=== PATIENT | male | born 1955 | race Caucasian/White ===

== ENCOUNTER 2018-02-03 15:57 | Inpatient (IN) | payer MEDICAID ==
[~2018-02-03] VITALS: Ht 182.9 cm; Wt 69.9 kg
[~2018-02-03 15:57] MED LIST: FLOMAX; SULF1TAB48 PO; TAMS0.4C31 PO; TERA2CAP4 PO
[2018-02-04] MEDS ORDERED: ONDANSETRON HCL 4MG/2ML INJ IV STA (00:49)
[2018-02-04] MEDS ORDERED: SODIUM CHLORIDE 0.9% 1,000 ML IV ONE ×2 (00:49→11:30)
[2018-02-04 01:20] LABS: CHLORIDE 94 mEq/L (98-107)
[2018-02-04 01:22] LABS: BASOPHILS % 0.2 % (0.0-2.0); EOSINOPHILS % 0.1 % (0.0-5.0); HEMATOCRIT. 56.1 % (42.0-52.0); HEMOGLOBIN. 19.1 g/dL (14.0-18.0); LYMPHOCYTES % 10.5 % (20.0-50.0); MEAN CORPUSCULAR HEMOGLOBIN 30.9 pg (28.0-32.0); MEAN CORPUSCULAR VOLUME 90.4 fL (80.0-94.0); MONOCYTES % 13.3 % (2.0-8.0); NEUTROPHILS % 75.9 % (40.0-76.0); RED CELL DISTRIBUTION WIDTH 13.3 % (11.6-14.6)
[2018-02-04 01:24] LABS: INR 1.1; PROTHROMBIN TIME 11.4 sec (9.1-11.1)
[2018-02-04 01:25] LABS: ETHANOL BLOOD < 10 mg/dL
[2018-02-04] MEDS ORDERED: ONDANSETRON HCL 4MG/2ML INJ IV ONE (01:30)
[2018-02-04 01:56] LABS: MEAN PLATELET VOLUME 8.3 fl (7.4-10.4); PLATELET 372 x1000/uL (130-400)
[2018-02-04 04:27] LABS: CLARITY URINE CLEAR (CLEAR); COLOR URINE YELLOW (YELLOW); KETONES URINE NEGATIVE (NEGATIVE); LEUKOCYTE ESTERASE URINE NEGATIVE (NEGATIVE); NITRITE URINE NEGATIVE (NEGATIVE); OCCULT BLOOD URINE NEGATIVE (NEGATIVE); PROTEIN URINE 2+ (NEGATIVE); SPECIFIC GRAVITY URINE 1.036 (1.005-1.030)
[2018-02-04 04:39] LABS: *AMPHETAMINES SCREEN URINE NEGATIVE (NEGATIVE); *BARBITURATES SCREEN URINE NEGATIVE (NEGATIVE); *COCAINE SCREEN URINE PRESUMTIVE POSITIVE (NEGATIVE)
[2018-02-04 04:40] LABS: *BENZODIAZEPINES SCREEN URINE NEGATIVE (NEGATIVE); CANNABINOID URINE SCREEN NEGATIVE (NEGATIVE); METHADONE URINE SCREEN NEGATIVE (NEGATIVE); OPIATES URINE SCREEN NEGATIVE (NEGATIVE); PHENCYCLIDINE URINE SCREEN NEGATIVE (NEGATIVE)
[2018-02-04] MEDS ORDERED: MORPHINE SULFATE 4 MG/ML CPJ (NOT FOR IM USE) IV ONE (05:15)
[2018-02-04] MEDS ORDERED: HYDRALAZINE 20MG/ML VIAL IV PRN (08:15)
[2018-02-04] MEDS ORDERED: MORPHINE SULFATE 4 MG/ML CPJ (NOT FOR IM USE) IV PRN (08:15)
[2018-02-04] MEDS ORDERED: ONDANSETRON HCL 4MG/2ML INJ IV PRN (08:15)
[2018-02-04] MEDS ORDERED: HYDRALAZINE 10 MG in SODIUM CHLORIDE 0.9% 49.5 ML IV PRN (11:30)
[2018-02-04 12:00] VITALS: BP 152/86
[2018-02-04 16:00] VITALS: BP_SYST 132; BP_SYST 151; BP_DIAS 86; BP_DIAS 95
[2018-02-04 17:00] VITALS: BP 138/81
[2018-02-04] MEDS: DEXT 5%/0.45% NACL 1000ML 1,000 ML IV SCH (18:30)
[2018-02-04 20:00] VITALS: BP 120/73
[2018-02-05] VITALS: BP 112/68
[2018-02-05 04:00] VITALS: BP 101/57
[2018-02-05] MEDS: DEXT 5%/0.45% NACL 1000ML 1,000 ML IV SCH ×2 (04:15→20:00)
[2018-02-05 06:11] LABS: BASOPHILS % 0.4 % (0.0-2.0); EOSINOPHILS % 1.4 % (0.0-5.0); HEMATOCRIT. 44.4 % (42.0-52.0); HEMOGLOBIN. 14.8 g/dL (14.0-18.0); LYMPHOCYTES % 18.1 % (20.0-50.0); MEAN CORPUSCULAR HEMOGLOBIN 30.3 pg (28.0-32.0); MEAN CORPUSCULAR VOLUME 91.3 fL (80.0-94.0); MONOCYTES % 14.2 % (2.0-8.0); NEUTROPHILS % 65.9 % (40.0-76.0); PLATELET 285 x1000/uL (130-400); RED BLOOD CELL COUNT 4.87 mill/uL (4.7-6.1); RED CELL DISTRIBUTION WIDTH 13.1 % (11.6-14.6)
[2018-02-05 06:26] LABS: CHLORIDE 105 mEq/L (98-107)
[2018-02-05 08:00] VITALS: BP 132/80
[2018-02-05 12:00] VITALS: BP 110/76
[2018-02-05 16:00] VITALS: BP 119/74
[2018-02-05 20:00] VITALS: BP 104/72
[2018-02-06] VITALS: BP 118/69
[2018-02-06] MEDS: DEXT 5%/0.45% NACL 1000ML 1,000 ML IV SCH (00:15)
[2018-02-06 04:00] VITALS: BP 108/67
[2018-02-06 08:00] VITALS: BP 96/52
[2018-02-06 10:31] LABS: BASOPHILS % 0.4 % (0.0-2.0); EOSINOPHILS % 0.9 % (0.0-5.0); HEMATOCRIT. 44.2 % (42.0-52.0); HEMOGLOBIN. 14.9 g/dL (14.0-18.0); MEAN CORPUSCULAR HEMOGLOBIN 30.7 pg (28.0-32.0); MEAN PLATELET VOLUME 8.1 fl (7.4-10.4); NEUTROPHILS % 64.7 % (40.0-76.0); PLATELET 260 x1000/uL (130-400); RED BLOOD CELL COUNT 4.86 mill/uL (4.7-6.1)
[2018-02-06 11:31] VITALS: BP 96/52
[2018-02-06 11:52] LABS: CHLORIDE 102 mEq/L (98-107)
== END 2018-02-06 11:50 | disposition home or self-care (01) | DRG 247 ==
LOC: ER 15:57 → 6EST 02-04 07:30 → ENRESERV 02-04 08:45
PROVIDERS: ADMIT Internal Medicine; ATTEND Internal Medicine
DX: K56.7 Ileus, unspecified (principal); N17.0 Acute kidney failure with tubular necrosis; E87.8 Other disorders of electrolyte and fluid balance, not elsewhere classified; I10 Essential (primary) hypertension; F14.90 Cocaine use, unspecified, uncomplicated; N40.0 Benign prostatic hyperplasia without lower urinary tract symptoms; Z79.899 Other long term (current) drug therapy
CPT/HCPCS: 36415; 71045; 74018; 74176; 80048; 80305; 83036; 99285; G0482; J2270; J2405; J7030

== ENCOUNTER 2018-05-04 09:45 | Emergency (ER) | payer MEDICAID ==
[~2018-05-04] VITALS: Ht 170.2 cm; Wt 73.0 kg
[~2018-05-04 09:45] MED LIST changes: -SULF1TAB48 PO
[2018-05-04 10:56] LABS: CLARITY URINE CLEAR (CLEAR); COLOR URINE YELLOW (YELLOW); KETONES URINE NEGATIVE (NEGATIVE); LEUKOCYTE ESTERASE URINE NEGATIVE (NEGATIVE); NITRITE URINE NEGATIVE (NEGATIVE); OCCULT BLOOD URINE TRACE (NEGATIVE); PH URINE 6.5 (4.5-8.0); PROTEIN URINE NEGATIVE (NEGATIVE); SPECIFIC GRAVITY URINE 1.008 (1.005-1.030); UROBILINOGEN URINE 0.2 E.U./dL (0.2-1.0)
[2018-05-04 11:34] LABS: BASOPHILS % 0.5 % (0.0-2.0); EOSINOPHILS % 1.1 % (0.0-5.0); HEMATOCRIT. 46.2 % (42.0-52.0); HEMOGLOBIN. 15.4 g/dL (14.0-18.0); LYMPHOCYTES % 15.4 % (20.0-50.0); MEAN CORPUSCULAR HEMOGLOBIN 30.4 pg (28.0-32.0); MEAN PLATELET VOLUME 8.3 fl (7.4-10.4); MONOCYTES % 8.7 % (2.0-8.0); NEUTROPHILS % 74.3 % (40.0-76.0); PLATELET 212 x1000/uL (130-400); RED BLOOD CELL COUNT 5.07 mill/uL (4.7-6.1); RED CELL DISTRIBUTION WIDTH 12.7 % (11.6-14.6)
[2018-05-04 11:38] LABS: CHLORIDE 106 mEq/L (98-107)
[2018-05-04 13:26] LABS: *BARBITURATES SCREEN URINE NEGATIVE (NEGATIVE)
[2018-05-04 13:27] LABS: *AMPHETAMINES SCREEN URINE NEGATIVE (NEGATIVE); *BENZODIAZEPINES SCREEN URINE NEGATIVE (NEGATIVE); *COCAINE SCREEN URINE PRESUMTIVE POSITIVE (NEGATIVE); METHADONE URINE SCREEN NEGATIVE (NEGATIVE); OPIATES URINE SCREEN NEGATIVE (NEGATIVE); PHENCYCLIDINE URINE SCREEN NEGATIVE (NEGATIVE)
[2018-05-04 13:28] LABS: CANNABINOID URINE SCREEN NEGATIVE (NEGATIVE)
[2018-05-04 14:01] VITALS: BP 138/88
== END 2018-05-04 14:36 | disposition home or self-care (01) ==
LOC: ER 09:57
DX: R33.9 Retention of urine, unspecified (principal)
CPT/HCPCS: 36415; 80305; 99283

== ENCOUNTER 2020-07-06 16:03 | Emergency (ER) | payer MEDICAID ==
[~2020-07-06] VITALS: Ht 177.8 cm; Wt 77.0 kg
[2020-07-06 16:05] VITALS: BP 188/92
[2020-07-06] MEDS ORDERED: SODIUM CHLORIDE 0.9% 1,000 ML IV ONE (16:30)
[2020-07-06] MEDS ORDERED: TAMS-11 MT (20:05)
[2020-07-06] MEDS ORDERED: CEPH500C2 MT (20:06)
== END 2020-07-06 17:12 | disposition left against medical advice (07) ==
LOC: ER 16:03
DX: R10.9 Unspecified abdominal pain (principal); R46.2 Strange and inexplicable behavior
CPT/HCPCS: 87086; 99283; J7030; Z7610

== ENCOUNTER 2020-07-06 18:20 | Emergency (ER) | payer MEDICAID ==
[~2020-07-06] VITALS: Ht 175.3 cm; Wt 73.0 kg
[2020-07-06] MEDS ORDERED: KETOROLAC 60MG/2ML VIAL IM ONE (18:45)
[2020-07-06] MEDS ORDERED: LORAZEPAM 1MG TABLET PO ONE (18:45)
[2020-07-06 19:06] LABS: BASOPHILS % 0.4 % (0.0-2.0); EOSINOPHILS % 0.5 % (0.0-5.0); HEMATOCRIT. 43.4 % (42.0-52.0); HEMOGLOBIN. 15.1 g/dL (14.0-18.0); LYMPHOCYTES % 8.5 % (20.0-50.0); MEAN CORPUSCULAR HEMOGLOBIN 30.8 pg (28.0-32.0); MEAN CORPUSCULAR VOLUME 88.4 fL (80.0-94.0); MEAN PLATELET VOLUME 7.7 fl (7.4-10.4); NEUTROPHILS % 86.6 % (40.0-76.0); PLATELET 270 x1000/uL (130-400); RED BLOOD CELL COUNT 4.91 mill/uL (4.7-6.1)
[2020-07-06 19:13] LABS: CHLORIDE 103 mEq/L (98-107)
[2020-07-06 19:17] LABS: ETHANOL BLOOD < 10 mg/dL
[2020-07-06] MEDS ORDERED: TAMS-11 MT (20:05)
[2020-07-06] MEDS ORDERED: CEPH500C2 MT (20:06)
[2020-07-06 21:09] VITALS: BP 136/76
[2020-07-06 22:02] LABS: CLARITY URINE CLOUDY (CLEAR); COLOR URINE RED (YELLOW); KETONES URINE NEGATIVE (NEGATIVE); LEUKOCYTE ESTERASE URINE 1+ (NEGATIVE); NITRITE URINE NEGATIVE (NEGATIVE); OCCULT BLOOD URINE 3+ (NEGATIVE); PH URINE >=9.0 (4.5-8.0); PROTEIN URINE 1+ (NEGATIVE); SPECIFIC GRAVITY URINE 1.011 (1.005-1.030); UROBILINOGEN URINE 0.2 E.U./dL (0.2-1.0)
[2020-07-06 22:34] LABS: *AMPHETAMINES SCREEN URINE NEGATIVE (NEGATIVE); *BARBITURATES SCREEN URINE NEGATIVE (NEGATIVE); *BENZODIAZEPINES SCREEN URINE NEGATIVE (NEGATIVE)
[2020-07-06 22:35] LABS: *COCAINE SCREEN URINE PRESUMTIVE POSITIVE (NEGATIVE); CANNABINOID URINE SCREEN NEGATIVE (NEGATIVE); METHADONE URINE SCREEN NEGATIVE (NEGATIVE); OPIATES URINE SCREEN NEGATIVE (NEGATIVE); PHENCYCLIDINE URINE SCREEN NEGATIVE (NEGATIVE)
== END 2020-07-06 21:53 | disposition home or self-care (01) ==
LOC: ER 18:20
DX: R33.9 Retention of urine, unspecified (principal); N30.90 Cystitis, unspecified without hematuria; F17.200 Nicotine dependence, unspecified, uncomplicated; Z71.6 Tobacco abuse counseling
CPT/HCPCS: 36415; 51702; 80053; 80305; 80320; 81003; 83690; 85025; 99284; 99406; Z7610; G0480

== ENCOUNTER 2021-06-19 16:22 | Inpatient (IN) | payer MEDICAID, OTHER ==
[~2021-06-19] VITALS: Ht 175.3 cm; Wt 58.9 kg
[~2021-06-19 16:22] MED LIST changes: +CEPH500C2 MT; +TAMS-11 MT
[2021-06-19] MEDS ORDERED: NITROGLYCERIN 0.4MG TABLET SL SL ONE (16:45)
[2021-06-19] MEDS ORDERED: ASPIRIN 325MG EC TABLET PO ONE (16:45)
[2021-06-19] MEDS ORDERED: IPRATROPIUM/ALBUTEROL 0.5-3(2.5)MG/3ML NEB HHN ONE (16:45)
[2021-06-19 17:50] LABS: BASOPHILS % 0.6 % (0.0-2.0); EOSINOPHILS % 1.9 % (0.0-5.0); HEMATOCRIT. 45.4 % (42.0-52.0); HEMOGLOBIN. 15.2 g/dL (14.0-18.0); LYMPHOCYTES % 18.6 % (20.0-50.0); MEAN CORPUSCULAR HEMOGLOBIN 30.1 pg (28.0-32.0); MEAN CORPUSCULAR VOLUME 90.1 fL (80.0-94.0); MEAN PLATELET VOLUME 9.3 fl (7.4-10.4); MONOCYTES % 7.3 % (2.0-8.0); NEUTROPHILS % 71.6 % (40.0-76.0); PLATELET 233 x1000/uL (130-400); RED BLOOD CELL COUNT 5.04 mill/uL (4.7-6.1); RED CELL DISTRIBUTION WIDTH 14.8 % (11.6-14.6)
[2021-06-20] MEDS ORDERED: FUROSEMIDE 40MG/4ML VIAL IVP NR (02:00)
[2021-06-20] MEDS ORDERED: FUROSEMIDE 40MG TABLET PO NR (03:15)
[2021-06-20] MEDS ORDERED: ACETAMINOPHEN 325MG TABLET PO PRN (10:00)
[2021-06-20] MEDS ORDERED: ONDANSETRON HCL 4MG/2ML INJ IV PRN (10:00)
[2021-06-20 11:00] VITALS: BP 133/92
[2021-06-20 12:00] VITALS: BP 133/92
[2021-06-20] MEDS: LOSARTAN POTASSIUM 25 MG TABLET PO SCH ×2 (15:15→15:55)
[2021-06-20 16:00] VITALS: BP 118/81
[2021-06-20] MEDS ORDERED: FUROSEMIDE 40MG/4ML VIAL IVP SCH (17:15)
[2021-06-20 20:00] VITALS: BP 121/88
[2021-06-20] MEDS: CARVEDILOL 3.125 MG TABLET PO SCH (20:15)
[2021-06-21 04:00] VITALS: BP 117/91
[2021-06-21 08:00] VITALS: BP 100/72
[2021-06-21] MEDS: LOSARTAN POTASSIUM 25 MG TABLET PO SCH (08:46)
[2021-06-21] MEDS: CARVEDILOL 3.125 MG TABLET PO SCH ×2 (08:46→21:00)
[2021-06-21] MEDS: FUROSEMIDE 40MG/4ML VIAL IVP SCH (08:46)
[2021-06-21 12:00] VITALS: BP 113/87
[2021-06-21] MEDS ORDERED: ENOXAPARIN 40MG/0.4ML SYR SUBCUT SCH (14:00)
[2021-06-21 16:32] LABS: *AMPHETAMINES SCREEN URINE NEGATIVE (NEGATIVE); *BARBITURATES SCREEN URINE NEGATIVE (NEGATIVE); *BENZODIAZEPINES SCREEN URINE NEGATIVE (NEGATIVE); CANNABINOID URINE SCREEN NEGATIVE (NEGATIVE); OPIATES URINE SCREEN NEGATIVE (NEGATIVE); PHENCYCLIDINE URINE SCREEN NEGATIVE (NEGATIVE)
[2021-06-21 16:33] LABS: *COCAINE SCREEN URINE PRESUMTIVE POSITIVE (NEGATIVE); METHADONE URINE SCREEN NEGATIVE (NEGATIVE)
[2021-06-21 20:00] VITALS: BP 129/81
[2021-06-22 07:40] VITALS: BP 115/82
[2021-06-22] MEDS: CARVEDILOL 3.125 MG TABLET PO SCH (08:47)
[2021-06-22] MEDS: LOSARTAN POTASSIUM 25 MG TABLET PO SCH (08:47)
[2021-06-22] MEDS: FUROSEMIDE 40MG/4ML VIAL IVP SCH (08:47)
[2021-06-22] MEDS ORDERED: LOSA25TA3 PO (11:40)
[2021-06-22] MEDS ORDERED: COR3 PO (11:40)
[2021-06-22] MEDS ORDERED: FURO-151 MT (11:40)
[2021-06-22] MEDS ORDERED: ALBU18HF2 IH (11:40)
[2021-06-22 11:48] VITALS: BP 115/82
[2021-06-22 12:00] VITALS: BP 117/79
== END 2021-06-22 14:07 | disposition home or self-care (01) | DRG 194 ==
LOC: ER 16:22 → MICUSO 06-20 00:38 → 7EST 06-20 11:10
PROVIDERS: ADMIT Internal Medicine; ATTEND Internal Medicine
DX: I11.0 Hypertensive heart disease with heart failure (principal); N17.0 Acute kidney failure with tubular necrosis; E44.1 Mild protein-calorie malnutrition; I50.23 Acute on chronic systolic (congestive) heart failure; I42.9 Cardiomyopathy, unspecified; I27.20 Pulmonary hypertension, unspecified; J44.9 Chronic obstructive pulmonary disease, unspecified; E87.5 Hyperkalemia; E87.8 Other disorders of electrolyte and fluid balance, not elsewhere classified; R74.01 Elevation of levels of liver transaminase levels; Z20.822 Contact with and (suspected) exposure to COVID-19; F14.90 Cocaine use, unspecified, uncomplicated; I49.3 Ventricular premature depolarization; F17.210 Nicotine dependence, cigarettes, uncomplicated; R07.89 Other chest pain; Z79.899 Other long term (current) drug therapy; Z71.6 Tobacco abuse counseling; Z71.51 Drug abuse counseling and surveillance of drug abuser; Z68.1 Body mass index [BMI] 19.9 or less, adult
CPT/HCPCS: 36415; 71045; 80048; 80076; 80305; 83880; 84132; 84484; 85025; 87426; 93005; 93306; 94640; 99285; J1940

== ENCOUNTER 2021-08-10 22:42 | Inpatient (IN) | payer OTHER ==
[~2021-08-10] VITALS: Ht 175.3 cm; Wt 52.8 kg
[~2021-08-10 22:42] MED LIST changes: +ALBU18HF2 IH; -CEPH500C2 MT; +COR3 PO; -FLOMAX; +FURO-151 MT; +LOSA25TA3 PO
[2021-08-11 01:04] LABS: BASOPHILS % 0.3 % (0.0-2.0); EOSINOPHILS % 1.2 % (0.0-5.0); HEMATOCRIT. 45.9 % (42.0-52.0); LYMPHOCYTES % 10.6 % (20.0-50.0); MEAN CORPUSCULAR HEMOGLOBIN 29.4 pg (28.0-32.0); MEAN PLATELET VOLUME 8.4 fl (7.4-10.4); MONOCYTES % 5.2 % (2.0-8.0); NEUTROPHILS % 82.7 % (40.0-76.0); PLATELET 261 x1000/uL (130-400); RED CELL DISTRIBUTION WIDTH 14.2 % (11.6-14.6)
[2021-08-11 01:16] LABS: CHLORIDE 107 mEq/L (98-107)
[2021-08-11] MEDS ORDERED: FUROSEMIDE 40MG/4ML VIAL IVP ONE (03:00)
[2021-08-11 03:07] LABS: CLARITY URINE CLEAR (CLEAR); COLOR URINE YELLOW (YELLOW); KETONES URINE NEGATIVE (NEGATIVE); LEUKOCYTE ESTERASE URINE NEGATIVE (NEGATIVE); NITRITE URINE NEGATIVE (NEGATIVE); OCCULT BLOOD URINE NEGATIVE (NEGATIVE); PH URINE 6.5 (4.5-8.0); PROTEIN URINE NEGATIVE (NEGATIVE); SPECIFIC GRAVITY URINE 1.007 (1.005-1.030); UROBILINOGEN URINE 0.2 E.U./dL (0.2-1.0)
[2021-08-11] MEDS ORDERED: FUROSEMIDE 40MG/4ML VIAL IVP NR (04:15)
[2021-08-11 09:40] VITALS: BP 119/73
[2021-08-11] MEDS ORDERED: ONDANSETRON HCL 4MG/2ML INJ IV PRN (09:45)
[2021-08-11] MEDS ORDERED: IPRATROPIUM/ALBUTEROL 0.5-3(2.5)MG/3ML NEB HHN PRN (09:45)
[2021-08-11] MEDS ORDERED: ACETAMINOPHEN 325MG TABLET PO PRN (09:45)
[2021-08-11] MEDS ORDERED: CLONIDINE 0.1MG TABLET PO PRN (09:45)
[2021-08-11] MEDS ORDERED: DIPHENHYDRAMINE 50MG/ML VIAL IV PRN (09:45)
[2021-08-11] MEDS ORDERED: BISACODYL 10MG SUPP PR NR (10:00)
[2021-08-11] MEDS: SORBITOL 70% SOLN 30ML PO NR ×2 (10:44→10:45)
[2021-08-11 12:00] VITALS: BP 123/84
[2021-08-11] MEDS: METOCLOPRAMIDE HCL 10MG/2ML VIAL IV SCH ×2 (13:03→17:26)
[2021-08-11] MEDS: LACTULOSE 20G/30ML UDC PO SCH ×2 (13:03→21:10)
[2021-08-11 16:00] VITALS: BP 124/92
[2021-08-11] MEDS ORDERED: MAGNESIUM CITRATE 300ML SOLUTION PO NR (16:00)
[2021-08-11 20:00] VITALS: BP 120/92
[2021-08-11] MEDS: SENNOSIDES/DOCUSATE SOD 8.6/50MG TABLET PO SCH (21:10)
[2021-08-12] VITALS: BP 125/89
[2021-08-12 04:00] VITALS: BP 117/74
[2021-08-12] MEDS: LACTULOSE 20G/30ML UDC PO SCH ×5 (06:00→22:00)
[2021-08-12] MEDS: METOCLOPRAMIDE HCL 10MG/2ML VIAL IV SCH ×2 (06:00)
[2021-08-12 08:00] VITALS: BP 102/75
[2021-08-12 08:40] LABS: BASOPHILS % 0.3 % (0.0-2.0); EOSINOPHILS % 0.8 % (0.0-5.0); HEMATOCRIT. 46.9 % (42.0-52.0); HEMOGLOBIN. 15.4 g/dL (14.0-18.0); LYMPHOCYTES % 10.9 % (20.0-50.0); MEAN CORPUSCULAR HEMOGLOBIN 29.3 pg (28.0-32.0); MEAN CORPUSCULAR VOLUME 89.1 fL (80.0-94.0); MEAN PLATELET VOLUME 9.2 fl (7.4-10.4); MONOCYTES % 7.4 % (2.0-8.0); NEUTROPHILS % 80.6 % (40.0-76.0); PLATELET 248 x1000/uL (130-400); RED BLOOD CELL COUNT 5.26 mill/uL (4.7-6.1); RED CELL DISTRIBUTION WIDTH 13.9 % (11.6-14.6)
[2021-08-12] MEDS ORDERED: FUROSEMIDE 40MG/4ML VIAL IV SCH (09:00)
[2021-08-12 09:20] LABS: CHLORIDE 103 mEq/L (98-107)
[2021-08-12] MEDS: FUROSEMIDE 40MG TABLET PO SCH (11:32)
[2021-08-12 12:00] VITALS: BP 97/69
[2021-08-12 16:00] VITALS: BP 135/84
[2021-08-12 20:00] VITALS: BP 123/73
[2021-08-12] MEDS: SENNOSIDES/DOCUSATE SOD 8.6/50MG TABLET PO SCH ×2 (21:00→21:59)
[2021-08-12] MEDS: CARVEDILOL 3.125 MG TABLET PO SCH ×2 (21:00→21:59)
[2021-08-12 21:52] LABS: *AMPHETAMINES SCREEN URINE NEGATIVE (NEGATIVE); *BARBITURATES SCREEN URINE NEGATIVE (NEGATIVE); *BENZODIAZEPINES SCREEN URINE NEGATIVE (NEGATIVE); *COCAINE SCREEN URINE PRESUMTIVE POSITIVE (NEGATIVE); CANNABINOID URINE SCREEN NEGATIVE (NEGATIVE); METHADONE URINE SCREEN NEGATIVE (NEGATIVE); OPIATES URINE SCREEN NEGATIVE (NEGATIVE); PHENCYCLIDINE URINE SCREEN NEGATIVE (NEGATIVE)
[2021-08-13] VITALS: BP 99/66
[2021-08-13 04:00] VITALS: BP 89/59
[2021-08-13] MEDS: LACTULOSE 20G/30ML UDC PO SCH (05:44)
[2021-08-13 08:00] VITALS: BP 102/78
[2021-08-13] MEDS: CARVEDILOL 3.125 MG TABLET PO SCH (09:00)
[2021-08-13] MEDS: FUROSEMIDE 40MG TABLET PO SCH (09:31)
[2021-08-13 12:00] VITALS: BP 104/67
[2021-08-13] MEDS ORDERED: LOSA25TA3 PO (13:09)
[2021-08-13] MEDS ORDERED: FURO-151 MT (13:09)
[2021-08-13] MEDS ORDERED: COR3 PO (13:10)
[2021-08-13] MEDS ORDERED: SPIR25TA6 MT (13:10)
[2021-08-13] MEDS ORDERED: APIXABAN 5 MG TABLET PO SCH (13:30)
[2021-08-13 14:29] VITALS: BP 104/67
== END 2021-08-13 15:15 | disposition home or self-care (01) | DRG 194 ==
LOC: ER 22:42 → 7WST 08-11 05:16 → EDBEDREQ 08-11 05:22 → ENRESERV 08-11 07:13
PROVIDERS: ADMIT Internal Medicine; ATTEND Internal Medicine
DX: I11.0 Hypertensive heart disease with heart failure (principal); J96.00 Acute respiratory failure, unspecified whether with hypoxia or hypercapnia; E44.1 Mild protein-calorie malnutrition; J44.1 Chronic obstructive pulmonary disease with (acute) exacerbation; I50.23 Acute on chronic systolic (congestive) heart failure; I42.9 Cardiomyopathy, unspecified; K52.9 Noninfective gastroenteritis and colitis, unspecified; K56.41 Fecal impaction; N32.0 Bladder-neck obstruction; N40.0 Benign prostatic hyperplasia without lower urinary tract symptoms; F17.210 Nicotine dependence, cigarettes, uncomplicated; I25.10 Atherosclerotic heart disease of native coronary artery without angina pectoris; L02.32 Furuncle of buttock; Z68.1 Body mass index [BMI] 19.9 or less, adult
CPT/HCPCS: 36415; 71045; 74018; 74176; 80053; 80305; 81003; 83605; 83880; 84484; 85025; 93005; 93306; 93970; 99285; J1940; J2765

== ENCOUNTER 2021-09-24 09:18 | Emergency (ER) | payer OTHER ==
[~2021-09-24] VITALS: Ht 172.7 cm; Wt 79.0 kg
[~2021-09-24 09:18] MED LIST changes: +SPIR25TA6 MT
[2021-09-24] MEDS ORDERED: ONDANSETRON HCL 4MG/2ML INJ IV STA (10:39)
[2021-09-24] MEDS ORDERED: GLUCAGON,HUMAN RECOMBINANT 1MG/VIAL IV ONE (10:45)
[2021-09-24] MEDS ORDERED: SODIUM CHLORIDE 0.9% 1,000 ML IV ONE (10:45)
[2021-09-24 12:28] LABS: BASOPHILS % 0.5 % (0.0-2.0); EOSINOPHILS % 1.5 % (0.0-5.0); HEMATOCRIT. 48.2 % (42.0-52.0); HEMOGLOBIN. 15.8 g/dL (14.0-18.0); LYMPHOCYTES % 14.4 % (20.0-50.0); MEAN CORPUSCULAR HEMOGLOBIN 29.4 pg (28.0-32.0); MEAN CORPUSCULAR VOLUME 89.9 fL (80.0-94.0); MEAN PLATELET VOLUME 8.6 fl (7.4-10.4); MONOCYTES % 6.9 % (2.0-8.0); NEUTROPHILS % 76.7 % (40.0-76.0); PLATELET 246 x1000/uL (130-400); RED BLOOD CELL COUNT 5.36 mill/uL (4.7-6.1); RED CELL DISTRIBUTION WIDTH 13.9 % (11.6-14.6)
[2021-09-24 12:35] LABS: CHLORIDE 108 mEq/L (98-107)
[2021-09-24 13:11] LABS: INR 1.1; PROTHROMBIN TIME 11.8 sec (9.6-11.0)
[2021-09-24 13:57] VITALS: BP 116/78
== END 2021-09-24 13:54 | disposition home or self-care (01) ==
LOC: ER 09:48
DX: T18.128A Food in esophagus causing other injury, initial encounter (principal); X58.XXXA Exposure to other specified factors, initial encounter; I50.9 Heart failure, unspecified; Z86.73 Personal history of transient ischemic attack (TIA), and cerebral infarction without residual deficits; Z79.899 Other long term (current) drug therapy
CPT/HCPCS: 36415; 80053; 85025; 85610; 96361; 96374; 96375; 99284; J1610; J2405; J7030

== ENCOUNTER 2021-09-24 14:19 | Emergency (ER) | payer OTHER ==
[~2021-09-24] VITALS: Ht 175.3 cm; Wt 75.0 kg
[2021-09-24 14:41] VITALS: BP 136/91
== END 2021-09-24 21:14 | disposition left against medical advice (07) ==
LOC: ER 14:31
DX: Z53.21 Procedure and treatment not carried out due to patient leaving prior to being seen by health care provider (principal)
CPT/HCPCS: 99281

== ENCOUNTER 2022-03-26 01:21 | Inpatient (IN) | payer OTHER ==
[~2022-03-26] VITALS: Ht 175.3 cm; Wt 61.2 kg
[2022-03-26 03:38] LABS: BASOPHILS % 0.7 % (0.0-2.0); EOSINOPHILS % 1.6 % (0.0-5.0); HEMATOCRIT. 46.3 % (42.0-52.0); LYMPHOCYTES % 16.7 % (20.0-50.0); MEAN CORPUSCULAR HEMOGLOBIN 29.9 pg (28.0-32.0); MEAN CORPUSCULAR VOLUME 92.1 fL (80.0-94.0); MEAN PLATELET VOLUME 8.2 fl (7.4-10.4); MONOCYTES % 5.8 % (2.0-8.0); NEUTROPHILS % 75.2 % (40.0-76.0); PLATELET 230 x1000/uL (130-400); RED BLOOD CELL COUNT 5.03 mill/uL (4.7-6.1); RED CELL DISTRIBUTION WIDTH 15.4 % (11.6-14.6)
[2022-03-26 03:46] LABS: CLARITY URINE CLEAR (CLEAR); COLOR URINE YELLOW (YELLOW); KETONES URINE TRACE (NEGATIVE); LEUKOCYTE ESTERASE URINE NEGATIVE (NEGATIVE); NITRITE URINE NEGATIVE (NEGATIVE); OCCULT BLOOD URINE TRACE (NEGATIVE); PROTEIN URINE 1+ (NEGATIVE); SPECIFIC GRAVITY URINE 1.025 (1.005-1.030)
[2022-03-26 03:57] LABS: CHLORIDE 111 mEq/L (98-107)
[2022-03-26 04:01] LABS: INR 1.2; PROTHROMBIN TIME 12.7 sec (9.6-11.0)
[2022-03-26 04:04] LABS: ETHANOL BLOOD < 10 mg/dL
[2022-03-26 04:05] LABS: *AMPHETAMINES SCREEN URINE NEGATIVE (NEGATIVE); *BARBITURATES SCREEN URINE NEGATIVE (NEGATIVE); *BENZODIAZEPINES SCREEN URINE NEGATIVE (NEGATIVE); *COCAINE SCREEN URINE PRESUMTIVE POSITIVE (NEGATIVE); CANNABINOID URINE SCREEN NEGATIVE (NEGATIVE); METHADONE URINE SCREEN NEGATIVE (NEGATIVE); OPIATES URINE SCREEN NEGATIVE (NEGATIVE); PHENCYCLIDINE URINE SCREEN NEGATIVE (NEGATIVE)
[2022-03-26] MEDS ORDERED: ASPIRIN 325MG EC TABLET PO ONE (06:30)
[2022-03-26] MEDS ORDERED: FUROSEMIDE 40MG/4ML VIAL IVP ONE (06:30)
[2022-03-26] MEDS ORDERED: ACETAMINOPHEN 325MG TABLET PO PRN (13:00)
[2022-03-26] MEDS ORDERED: ONDANSETRON HCL 4MG/2ML INJ IV PRN (13:00)
[2022-03-26] MEDS ORDERED: IPRATROPIUM/ALBUTEROL 0.5-3(2.5)MG/3ML NEB HHN PRN (13:00)
[2022-03-26] MEDS: FUROSEMIDE 40MG/4ML VIAL IVP SCH ×3 (13:33→19:18)
[2022-03-26 22:00] VITALS: BP 93/70
[2022-03-27] VITALS: BP 112/90
[2022-03-27 04:00] VITALS: BP 105/68
[2022-03-27 07:43] LABS: CHLORIDE 107 mEq/L (98-107)
[2022-03-27 08:00] VITALS: BP 120/92
[2022-03-27] MEDS: LOSARTAN POTASSIUM 25 MG TABLET PO SCH (08:40)
[2022-03-27] MEDS: FUROSEMIDE 40MG/4ML VIAL IVP SCH ×2 (08:40→17:00)
[2022-03-27] MEDS: SPIRONOLACTONE 25MG TABLET PO SCH (08:40)
[2022-03-27 12:00] VITALS: BP 100/48
[2022-03-27] MEDS ORDERED: COR3 PO (12:44)
[2022-03-27] MEDS ORDERED: SPIR25TA6 MT (12:44)
[2022-03-27] MEDS ORDERED: LOSA25TA3 PO (12:44)
[2022-03-27] MEDS ORDERED: FURO-151 MT (12:44)
[2022-03-27 16:00] VITALS: BP 110/78
[2022-03-27 20:00] VITALS: BP 107/72
[2022-03-28] VITALS: BP 109/76
[2022-03-28 04:00] VITALS: BP 108/74
[2022-03-28] MEDS: LOSARTAN POTASSIUM 25 MG TABLET PO SCH (09:00)
[2022-03-28] MEDS: FUROSEMIDE 40MG/4ML VIAL IVP SCH (09:00)
[2022-03-28] MEDS: SPIRONOLACTONE 25MG TABLET PO SCH (09:00)
[2022-03-28 11:43] VITALS: BP 105/77
== END 2022-03-28 15:50 | disposition home or self-care (01) | DRG 194 ==
LOC: ER 01:21 → MICUSO 09:39 → EDBEDREQ 09:47 → EDBEDREQTM 09:47 → 7EST 21:20
PROVIDERS: ADMIT Internal Medicine; ATTEND Internal Medicine
DX: I11.0 Hypertensive heart disease with heart failure (principal); E46 Unspecified protein-calorie malnutrition; I42.9 Cardiomyopathy, unspecified; I50.23 Acute on chronic systolic (congestive) heart failure; Z20.822 Contact with and (suspected) exposure to COVID-19; J44.9 Chronic obstructive pulmonary disease, unspecified; F14.90 Cocaine use, unspecified, uncomplicated; F17.210 Nicotine dependence, cigarettes, uncomplicated; Z79.899 Other long term (current) drug therapy; Z68.1 Body mass index [BMI] 19.9 or less, adult
CPT/HCPCS: 36415; 71045; 80048; 80053; 80305; 80320; 81003; 83880; 84484; 85025; 87426; 93005; 99291; C9803; J1940; G0480

== ENCOUNTER 2022-11-03 13:59 | Emergency (ER) | payer MEDICAID ==
[~2022-11-03] VITALS: Ht 170.2 cm; Wt 69.0 kg
[~2022-11-03 13:59] MED LIST changes: +APIX5TAB MT; +ASPI-1497 MT; +ATOR80TA MT
[2022-11-03 14:02] VITALS: BP 130/82; PULSE 83; RESP 18; TEMP 98.6; O2SAT 100
== END 2022-11-03 17:06 | disposition left against medical advice (07) ==
LOC: ER 14:11
DX: Z53.21 Procedure and treatment not carried out due to patient leaving prior to being seen by health care provider (principal)
CPT/HCPCS: 99281